=== PATIENT | male | born 2005 | race Caucasian/White ===

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

== ENCOUNTER 2025-02-09 16:48 | Emergency (ER) | payer SELFPAY ==
[~2025-02-09] VITALS: Ht 177.8 cm; Wt 168.3 kg
[~2025-02-09 16:48] MED LIST changes: +AMOX-CLAV 875-1 EACH PO
[2025-02-09] MEDS ORDERED: Acetaminophen/Oxycodone 5 MG/325 MG TABLET PO ONE ×2 (20:00→20:10)
== END 2025-02-09 20:11 | disposition home or self-care (01) ==
LOC: ED 16:48
DX: S96.912A Strain of unspecified muscle and tendon at ankle and foot level, left foot, initial encounter (principal); W18.42XA Slipping, tripping and stumbling without falling due to stepping into hole or opening, initial encounter; Y93.89 Activity, other specified; Y92.89 Other specified places as the place of occurrence of the external cause; Y99.8 Other external cause status

== ENCOUNTER 2025-05-16 23:28 | Emergency (ER) | payer OTHER ==
[~2025-05-16] VITALS: Ht 180.3 cm; Wt 166.5 kg
== END 2025-05-17 05:17 | disposition home or self-care (01) ==
LOC: ED 23:28
DX: R07.89 Other chest pain (principal)